=== PATIENT | male | born 1995 | race Caucasian/White ===

== ENCOUNTER 2016-07-27 00:08 | Emergency (ER) | payer SELFPAY ==
[2016-07-27 00:27] VITALS: BP 146/91; BMI 33.5
[2016-07-27] MEDS ORDERED: TORADOL 60 MG VIAL IM ONE (01:00)
[2016-07-27] MEDS ORDERED: TORADOL 60 MG VIAL ONE (01:01)
--- NOTE | 2016-07-27 01:01 | DR.GENAD ---
HPI - PCP Primary Care Physician: SKYLAR - Complaint/Symptoms Chief Complaint:: PT STATES HE "BLACKED OUT GETTING OUT OF THE SHOWER" THIS AM AND WOKE UP WITH HIS RIGHT ANKLE/FOOT SWOLLEN. - Source History Provided: Patient - Mode of Arrival Mode of Arrival: Ambulatory - Timing Onset of Chief Complaint: 07/27/16 PMH - PMH Past Medical History: No Past Surgical History: No - Family History History of Family Medical Conditions: No - Social History Alcohol Use: None Do you use any recreational Drugs:: No Lives With: Friend Lives Where: Home - infectious screening In the last 2 months have you had wt loss of >10#?: NO Have you had fever, night sweats or hemotysis?: No Have you traveled outside the country in the last 6 months?: No Isolation: Standard ROS - Review of Systems Eyes: No Symptoms Reported ENTM: No Symptoms Reported Respiratoy: No Symptoms Reported Cardiovascular: No Symptoms Reported Gastrointestinal/Abdominal: No Symptoms Reported Genitourinary: No Symptoms Reported Neurological: No Symptoms Reported Musculoskeletal: No Symptoms Reported, Ankle (swollen) Integumentary: No Symptoms Reported Hematologic/Lymphatic: No Symptoms Reported Endocrine: No Symptoms Reported, See HPI Psychiatric: No Symptoms Reported All Other Systems: Reviewed and Negative PE - Vital Signs Vitals: Temperature 99.7 F Pulse Rate 103 Respiratory Rate 20 Blood Pressure 146/91 O2 Sat by Pulse Oximetry 100 - General Limitations: No Limitations General Appearance: Alert, In No Apparent Distress - Head Head Exam: Normal Inspection, Atraumatic - Eyes Eye exam: Normal Appearance, PERRL, EOMI - ENT ENT Exam: Normal Exam External Ear Exam: Normal External Inspection TM/Canal Exam: Bilateral Normal Nose Exam: Normal Nose Exam Mouth Exam: Normal Inspection Throat Exam: Normal Inspection - Neck Neck Exam: Normal Inspection, Full ROM - Chest Chest Inspection: Normal Inspection, Symmetric Chest Wall Rise - Respiratory Respiratory Exam: Normal Lung Sounds Bilat Respiratory Exam: Bilateral Clear to Auscultation - Cardiovascular Cardiovascular Exam: Regular Rate - Abdominal Exam Abdominal Exam: Normal Inspection Abdominal Tenderness: negative: RUQ, RLQ, LUQ, LLQ, Epigastrium, Suprapubic, Diffuse, Mild, Moderate, Severe, Other - Extremities Extremities Exam: Normal Inspection, Tenderness, Joint Swelling (right ankle) - Back Back Exam: Normal Inspection - Neurologic Neurological Exam: Alert, Oriented X3, CN II-XII Intact ROR - XRAY XRAY Interpreted by: Radiologist (Soft tissue swelling w/o fracture: ankle sprain) - Diagnosis Discharge Problem: Ankle sprain Qualifiers: Encounter type: initial encounter Involved ligament of ankle: calcaneofibular ligament Laterality: right Qualified Code(s): S93.411A - Sprain of calcaneofibular ligament of right ankle, initial encounter - Discharge Plan Condition: Stable - Follow ups/Referrals Follow ups/Referrals: NFD,None [Primary Care Provider] - 3 days - Instructions
--- NOTE | 2016-07-27 01:29 | RAD ---
Three views of the right ankle Indication: Right ankle pain after injury. Findings: There is moderate soft tissue swelling within the lateral ankle without acute fracture or dislocation. No significant tibiotalar joint effusion identified. No osteochondral abnormality withi n talar dome. Mild degenerative change of the dorsal talonavicular joint. Impression: Moderate soft tissue swelling within the lateral ankle consistent with soft tissue injur y/sprain. No fracture or malalignment of the right ankle. Reported By:
== END 2016-07-27 01:53 | disposition home or self-care (01) ==
LOC: ER 00:08
DX: S93.411A Sprain of calcaneofibular ligament of right ankle, initial encounter (principal); Y33.XXXA Other specified events, undetermined intent, initial encounter; Y92.9 Unspecified place or not applicable
CPT/HCPCS: 29540; 73610; 96372; 99283; J1885